=== PATIENT | male | born 1990 | race Caucasian/White ===

== ENCOUNTER 2017-02-10 01:28 | Emergency (ER) | payer SELFPAY ==
[2017-02-10] MEDS ORDERED: Fluorescein Opthalmic Strip ONE (01:42)
[2017-02-10] MEDS ORDERED: Tetracaine HCl 0.5% Ophth Soln 2 ML Bottle ONE (01:42)
[2017-02-10] MEDS ORDERED: Erythromycin Base 0.5% Ophth Oint 3.5 gm Tube ONE (01:48)
[2017-02-10] MEDS ORDERED: Gentamicin Ophth Soln 0.3% 5 ml Bottle ONE (01:49)
== END 2017-02-10 02:57 | disposition home or self-care (01) ==
LOC: BURERS 01:28
DX: H10.9 Unspecified conjunctivitis (principal); Z87.891 Personal history of nicotine dependence
CPT/HCPCS: 99283

== ENCOUNTER 2017-08-30 07:28 | Emergency (ER) | payer SELFPAY ==
[2017-08-30 07:59] LABS: Base Excess -1.2 mEq/L (-2 - +2); pH (venous) 7.37 (7.35-7.45)
[2017-08-30 08:00] LABS: Hemoglobin (Hb) 14.8 g/dL (13.2-17.3)
[2017-08-30 08:10] LABS: ALT (SGPT) 16 U/L (8-55); AST (SGOT) 19 U/L (5-34); Albumin 3.1 g/dL (3.5-5.0); Alkaline Phosphatase 48 U/L (40-150); Anion Gap 14 mmol/L (10-20); BUN (Urea Nitrogen) 27 mg/dL (8.9-20.6); Bilirubin, Total 0.6 mg/dL (0.2-1.2); Calc. Creatinine Clearance 0 mL/min (70-130); Calcium 8.6 mg/dL (7.8-10.44); Carbon Dioxide 22 mmol/L (22-29); Chloride 104 mmol/L (98-107); Estimated GFR-MDRD Greater than 90; Globulin 2.9 g/dL (2.4-3.5); Glucose 80 mg/dL (70-105); Sodium 136 mmol/L (136-145)
[2017-08-30 08:12] LABS: CKMB 0.8 ng/mL (0-6.6); Troponin I 0.055 ng/mL (< 0.028)
[2017-08-30] MEDS ORDERED: Piperacillin/Tazobactam 3.375 GM VIAL ONE (08:19)
[2017-08-30] MEDS ORDERED: Sodium Chloride 0.9% 100 ML ONE ×2 (08:19→08:35)
[2017-08-30 08:27] LABS: Hemoglobin 14.4 g/dL (14.0-18.0); Mean Corpuscular HGB CONC 34.4 g/dL (32.0-36.0); Mean Corpuscular Hemoglobin 30.4 pg (27.0-31.0); Mean Corpuscular Volume 88.4 fl (80.0-94.0); Platelet Count 174 thou/uL (130-400); RBC Distribution Width 11.8 % (11.5-14.5); Red Blood Cell (RBC) Count 4.73 mill/uL (4.70-6.10); White Blood Cell (WBC) Count 1.1 thou/uL (4.8-10.8)
[2017-08-30] MEDS ORDERED: Azithromycin 500 MG VIAL ONE ×2 (08:35→08:38)
[2017-08-30 08:37] LABS: Band 26 % (5-11); Eosinophils 7 % (0-10); Lymphocytes 28 % (21-51); MDiff Complete? YES; Mean Platelet Volume 5.8 fL (7.4-10.4); Metamyelocyte 4 % (0-0); Monocytes 4 % (0-10); Neutrophil 31 % (42-75); PLT Morphology Comment Appears Adequate; RBC Morphology Normal; Reflex for Review?? YES
[2017-08-30] MEDS ORDERED: Lorazepam 2 MG/ML VIAL ONE (09:09)
--- NOTE | 2017-08-30 18:14 | RAD ---
PORTABLE CHEST 08/30/17 An AP portable film at 0735 is compared with a 03/19/12 study. There is a dense right lower lobe consolidation consistent with pneumonia. The left lung is clear. Th e heart is normal in size. There is no vascular congestion or edema. I cannot tell if there is any co ncomitant pleural fluid on the right or not. There is no mediastinal shift. IMPRESSION: Dense right lower lobe consolidation consistent with pneumonia. POS: [facility]
== END 2017-08-30 09:35 | disposition short-term general hospital (02) ==
LOC: BURERS 07:28
DX: J18.9 Pneumonia, unspecified organism (principal); D70.9 Neutropenia, unspecified; F41.9 Anxiety disorder, unspecified; F17.210 Nicotine dependence, cigarettes, uncomplicated
CPT/HCPCS: 36415; 71010; 80053; 82553; 82805; 83605; 84484; 85025; 85060; 85379; 87040; 87077; 87149; 87186; 93005; 96365; 96367; 96375; J0456; J2060; J2543; J3370; J7050

== ENCOUNTER 2017-09-08 15:13 | Outpatient (CLI) | payer SELFPAY ==
--- NOTE | 2017-09-08 16:16 | RAD ---
CHEST TWO VIEWS: History: Pneumonia. FOllow up. Comparison: 09-01-17 FINDINGS: Cardiac silhouette and pulmonary vasculature are unremarkable. Infiltrate within the right lower lobe has improved significantly since the previous study. Some atelectasis remains with rightward shift o f the mediastinum. Left lung is well inflated. No pleural fluid is evident. IMPRESSION: Significant interval improvement in the right lower lobe infiltrate. Continued radiographic follow up is suggested to evaluate for complete resolution. POS: [facility]
== END 2017-09-08 15:14 | disposition home or self-care (01) ==
LOC: BURRAD 15:13
PROVIDERS: ATTEND Physician Assistant
DX: J18.1 Lobar pneumonia, unspecified organism (principal); R91.8 Other nonspecific abnormal finding of lung field
CPT/HCPCS: 71020

== ENCOUNTER 2017-09-12 07:15 | Emergency (ER) | payer SELFPAY ==
[2017-09-12] MEDS ORDERED: Fentanyl 100 MCG/2 ML VIAL ONE (07:57)
[2017-09-12] MEDS ORDERED: Ketorolac Tromethamine 30 MG/ML VIAL ONE (07:57)
[2017-09-12 08:04] LABS: Base Excess -0.4 mEq/L (-2 - +2); pH (venous) 7.45 (7.35-7.45)
[2017-09-12 08:05] LABS: Hemoglobin (Hb) 13.3 g/dL (13.2-17.3)
[2017-09-12 08:10] LABS: #Basophils 0.2 thou/uL (0.0-0.2); #Eosinphils 0.2 thou/uL (0.0-0.7); #Lymphocytes 2.5 thou/uL (1.20-3.40); #Monocytes 1.4 thou/uL (0.11-0.59); #Neutrophils 11.1 thou/uL (1.40-6.50); %Basophils 1.5 % (0.0-1.0); %Eosinophils 1.2 % (0.0-10.0); %Lymphocytes 16.1 % (21.0-51.0); %Monocytes 8.9 % (0.0-10.0); %Neutrophils 72.2 % (42.0-75.0); Hemoglobin 12.2 g/dL (14.0-18.0); Mean Corpuscular HGB CONC 33.2 g/dL (32.0-36.0); Mean Corpuscular Volume 90.6 fl (80.0-94.0); Mean Platelet Volume 4.6 fL (7.4-10.4); Platelet Count 803 thou/uL (130-400); RBC Distribution Width 13.5 % (11.5-14.5); Red Blood Cell (RBC) Count 4.08 mill/uL (4.70-6.10); White Blood Cell (WBC) Count 15.3 thou/uL (4.8-10.8)
[2017-09-12 08:21] LABS: ALT (SGPT) 62 U/L (8-55); AST (SGOT) 31 U/L (5-34); Albumin 3.3 g/dL (3.5-5.0); Alkaline Phosphatase 99 U/L (40-150); Anion Gap 16 mmol/L (10-20); BUN (Urea Nitrogen) 11 mg/dL (8.9-20.6); Bilirubin, Total 0.8 mg/dL (0.2-1.2); Calc. Creatinine Clearance 0 mL/min (70-130); Calcium 9.1 mg/dL (7.8-10.44); Carbon Dioxide 19 mmol/L (22-29); Chloride 105 mmol/L (98-107); Estimated GFR-MDRD Greater than 90; Globulin 3.8 g/dL (2.4-3.5); Glucose 100 mg/dL (70-105); Potassium 4.2 mmol/L (3.5-5.1); Protein, Total 7.1 g/dL (6.0-8.3); Sodium 136 mmol/L (136-145)
--- NOTE | 2017-09-12 10:15 | RAD ---
PA AND LATERAL VIEWS CHEST: HISTORY: Right-sided chest pain, pneumonia. FINDINGS: Comparison is made with the exam of 09/08/17. Airspace disease is seen in the right lower lobe, worse since 09/08/17. The heart size is normal. A right pleural effusion is seen. No pneumothoraces identified. The left lung is clear. IMPRESSION: Interval worsening since 09/08/17. POS: [facility]
== END 2017-09-12 08:59 | disposition short-term general hospital (02) ==
LOC: BURERS 07:15
DX: J18.9 Pneumonia, unspecified organism (principal); J90 Pleural effusion, not elsewhere classified; F17.210 Nicotine dependence, cigarettes, uncomplicated
CPT/HCPCS: 36415; 71046; 80053; 82805; 83605; 85025; 87040; 87070; 87205; 94760; 96365; 96375; J1885; J3010; J3370